=== PATIENT | male | born 1945 | race Caucasian/White ===

== ENCOUNTER → 2016-04-20 | Outpatient (CLI) | payer OTHER, MEDICARE | LOC: HYPER 07:00 | DX: S91.102D Unspecified open wound of left great toe without damage to nail, subsequent encounter (principal); I73.9 Peripheral vascular disease, unspecified; I10 Essential (primary) hypertension; Z86.14 Personal history of Methicillin resistant Staphylococcus aureus infection; Z87.891 Personal history of nicotine dependence; Z72.89 Other problems related to lifestyle; X58.XXXD Exposure to other specified factors, subsequent encounter ==

== ENCOUNTER → 2016-05-04 | Outpatient (CLI) | payer OTHER, MEDICARE | LOC: HYPER 07:03 | DX: S91.102D Unspecified open wound of left great toe without damage to nail, subsequent encounter (principal); I73.9 Peripheral vascular disease, unspecified; I10 Essential (primary) hypertension; Z87.891 Personal history of nicotine dependence; Z72.89 Other problems related to lifestyle; X58.XXXD Exposure to other specified factors, subsequent encounter ==

== ENCOUNTER → 2016-05-20 | Outpatient (CLI) | payer OTHER, MEDICARE | LOC: HYPER 07:01 | DX: L89.893 Pressure ulcer of other site, stage 3 (principal); G90.09 Other idiopathic peripheral autonomic neuropathy; I73.9 Peripheral vascular disease, unspecified; I10 Essential (primary) hypertension; Z86.14 Personal history of Methicillin resistant Staphylococcus aureus infection; Z87.891 Personal history of nicotine dependence; Z72.89 Other problems related to lifestyle ==

== ENCOUNTER → 2016-06-03 | Outpatient (CLI) | payer OTHER, MEDICARE | LOC: HYPER 07:06 | DX: L97.522 Non-pressure chronic ulcer of other part of left foot with fat layer exposed (principal); G90.09 Other idiopathic peripheral autonomic neuropathy; I73.9 Peripheral vascular disease, unspecified; I10 Essential (primary) hypertension; A49.1 Streptococcal infection, unspecified site; A49.01 Methicillin susceptible Staphylococcus aureus infection, unspecified site; Z87.891 Personal history of nicotine dependence ==

== ENCOUNTER → 2016-06-05 | Outpatient (CLI) | payer OTHER, MEDICARE | LOC: HYPER 08:13 | DX: L97.522 Non-pressure chronic ulcer of other part of left foot with fat layer exposed (principal); L89.893 Pressure ulcer of other site, stage 3; G90.09 Other idiopathic peripheral autonomic neuropathy; I73.9 Peripheral vascular disease, unspecified; I10 Essential (primary) hypertension; Z86.14 Personal history of Methicillin resistant Staphylococcus aureus infection; Z87.891 Personal history of nicotine dependence; Z72.89 Other problems related to lifestyle ==

== ENCOUNTER → 2016-06-12 | Outpatient (CLI) | payer OTHER, MEDICARE | LOC: HYPER 08:08 | DX: L89.893 Pressure ulcer of other site, stage 3 (principal); L97.522 Non-pressure chronic ulcer of other part of left foot with fat layer exposed; G90.09 Other idiopathic peripheral autonomic neuropathy; I73.9 Peripheral vascular disease, unspecified; I10 Essential (primary) hypertension; Z86.14 Personal history of Methicillin resistant Staphylococcus aureus infection; Z87.891 Personal history of nicotine dependence; Z72.89 Other problems related to lifestyle ==

== ENCOUNTER → 2016-06-18 | Outpatient (CLI) | payer OTHER, MEDICARE | LOC: HYPER 07:07 | DX: L97.522 Non-pressure chronic ulcer of other part of left foot with fat layer exposed (principal); G90.09 Other idiopathic peripheral autonomic neuropathy; I73.9 Peripheral vascular disease, unspecified; I10 Essential (primary) hypertension; Z86.19 Personal history of other infectious and parasitic diseases; Z87.891 Personal history of nicotine dependence ==

== ENCOUNTER → 2016-06-25 | Outpatient (CLI) | payer OTHER, MEDICARE | LOC: HYPER 07:18 | DX: L97.522 Non-pressure chronic ulcer of other part of left foot with fat layer exposed (principal); I73.9 Peripheral vascular disease, unspecified; I10 Essential (primary) hypertension; G90.09 Other idiopathic peripheral autonomic neuropathy; Z87.891 Personal history of nicotine dependence ==

== ENCOUNTER → 2016-07-02 | Outpatient (CLI) | payer OTHER, MEDICARE | LOC: HYPER 07:23 | DX: I70.245 Atherosclerosis of native arteries of left leg with ulceration of other part of foot (principal); L97.521 Non-pressure chronic ulcer of other part of left foot limited to breakdown of skin; L89.893 Pressure ulcer of other site, stage 3; I10 Essential (primary) hypertension; I73.9 Peripheral vascular disease, unspecified; G90.09 Other idiopathic peripheral autonomic neuropathy; Z86.14 Personal history of Methicillin resistant Staphylococcus aureus infection; Z87.891 Personal history of nicotine dependence; Z72.89 Other problems related to lifestyle ==

== ENCOUNTER → 2016-07-10 | Outpatient (CLI) | payer OTHER, MEDICARE | LOC: HYPER 07-09 15:54 | DX: L97.522 Non-pressure chronic ulcer of other part of left foot with fat layer exposed (principal); L89.891 Pressure ulcer of other site, stage 1; G90.09 Other idiopathic peripheral autonomic neuropathy; I10 Essential (primary) hypertension; I70.245 Atherosclerosis of native arteries of left leg with ulceration of other part of foot; Z86.14 Personal history of Methicillin resistant Staphylococcus aureus infection; Z86.19 Personal history of other infectious and parasitic diseases; Z87.891 Personal history of nicotine dependence ==

== ENCOUNTER → 2016-07-22 | Outpatient (CLI) | payer OTHER, MEDICARE | LOC: HYPER 07:10 | DX: L89.891 Pressure ulcer of other site, stage 1 (principal); G90.09 Other idiopathic peripheral autonomic neuropathy; I70.245 Atherosclerosis of native arteries of left leg with ulceration of other part of foot; L97.522 Non-pressure chronic ulcer of other part of left foot with fat layer exposed; I10 Essential (primary) hypertension; B95.62 Methicillin resistant Staphylococcus aureus infection as the cause of diseases classified elsewhere; Z87.891 Personal history of nicotine dependence ==

== ENCOUNTER → 2016-08-12 | Outpatient (CLI) | payer OTHER, MEDICARE | LOC: HYPER 06:56 | DX: I70.245 Atherosclerosis of native arteries of left leg with ulceration of other part of foot (principal); L97.522 Non-pressure chronic ulcer of other part of left foot with fat layer exposed; L89.893 Pressure ulcer of other site, stage 3; G90.09 Other idiopathic peripheral autonomic neuropathy; I10 Essential (primary) hypertension; B95.62 Methicillin resistant Staphylococcus aureus infection as the cause of diseases classified elsewhere; B95.61 Methicillin susceptible Staphylococcus aureus infection as the cause of diseases classified elsewhere; B95.5 Unspecified streptococcus as the cause of diseases classified elsewhere; Z87.891 Personal history of nicotine dependence; Z72.89 Other problems related to lifestyle ==

== ENCOUNTER → 2016-09-10 | Outpatient (CLI) | payer OTHER, MEDICARE | LOC: HYPER 07:03 | DX: L89.893 Pressure ulcer of other site, stage 3 (principal); L97.522 Non-pressure chronic ulcer of other part of left foot with fat layer exposed; G90.09 Other idiopathic peripheral autonomic neuropathy; I73.9 Peripheral vascular disease, unspecified; I10 Essential (primary) hypertension; Z86.19 Personal history of other infectious and parasitic diseases; Z86.14 Personal history of Methicillin resistant Staphylococcus aureus infection; Z87.891 Personal history of nicotine dependence ==

== ENCOUNTER → 2016-10-20 | Outpatient (CLI) | payer OTHER, MEDICARE | LOC: HYPER 09-24 14:13 | DX: T81.31XA Disruption of external operation (surgical) wound, not elsewhere classified, initial encounter (principal); L89.893 Pressure ulcer of other site, stage 3; Z86.14 Personal history of Methicillin resistant Staphylococcus aureus infection; I10 Essential (primary) hypertension; Z87.891 Personal history of nicotine dependence; Z72.89 Other problems related to lifestyle; Y92.89 Other specified places as the place of occurrence of the external cause; Y83.8 Other surgical procedures as the cause of abnormal reaction of the patient, or of later complication, without mention of misadventure at the time of the procedure ==

== ENCOUNTER → 2016-11-03 | Outpatient (CLI) | payer OTHER, MEDICARE | LOC: HYPER 07:09 | DX: T81.31XD Disruption of external operation (surgical) wound, not elsewhere classified, subsequent encounter (principal); L89.892 Pressure ulcer of other site, stage 2; I73.9 Peripheral vascular disease, unspecified; I10 Essential (primary) hypertension; Z86.14 Personal history of Methicillin resistant Staphylococcus aureus infection; Z87.891 Personal history of nicotine dependence; Z72.89 Other problems related to lifestyle; Y83.8 Other surgical procedures as the cause of abnormal reaction of the patient, or of later complication, without mention of misadventure at the time of the procedure ==

== ENCOUNTER → 2016-11-17 | Outpatient (CLI) | payer OTHER, MEDICARE | LOC: HYPER 07:19 | DX: T81.31XD Disruption of external operation (surgical) wound, not elsewhere classified, subsequent encounter (principal); I73.9 Peripheral vascular disease, unspecified; L89.893 Pressure ulcer of other site, stage 3; Z87.891 Personal history of nicotine dependence; Y83.8 Other surgical procedures as the cause of abnormal reaction of the patient, or of later complication, without mention of misadventure at the time of the procedure ==

== ENCOUNTER → 2016-12-03 | Outpatient (CLI) | payer OTHER, MEDICARE | LOC: HYPER 06:59 | DX: T81.31XD Disruption of external operation (surgical) wound, not elsewhere classified, subsequent encounter (principal); L89.893 Pressure ulcer of other site, stage 3; Z86.14 Personal history of Methicillin resistant Staphylococcus aureus infection; I73.9 Peripheral vascular disease, unspecified; Z87.891 Personal history of nicotine dependence; Y83.8 Other surgical procedures as the cause of abnormal reaction of the patient, or of later complication, without mention of misadventure at the time of the procedure ==

== ENCOUNTER → 2017-01-04 | Outpatient (CLI) | payer OTHER, MEDICARE | LOC: HYPER 07:19 | DX: T81.31XD Disruption of external operation (surgical) wound, not elsewhere classified, subsequent encounter (principal); L89.893 Pressure ulcer of other site, stage 3; I73.9 Peripheral vascular disease, unspecified; Z86.14 Personal history of Methicillin resistant Staphylococcus aureus infection; I10 Essential (primary) hypertension; Z87.891 Personal history of nicotine dependence; Y83.8 Other surgical procedures as the cause of abnormal reaction of the patient, or of later complication, without mention of misadventure at the time of the procedure ==

== ENCOUNTER → 2017-01-14 | Outpatient (CLI) | payer OTHER, MEDICARE | LOC: HYPER 01-13 16:42 | DX: T81.31XD Disruption of external operation (surgical) wound, not elsewhere classified, subsequent encounter (principal); L89.892 Pressure ulcer of other site, stage 2; L84 Corns and callosities; I10 Essential (primary) hypertension; I73.9 Peripheral vascular disease, unspecified; A49.01 Methicillin susceptible Staphylococcus aureus infection, unspecified site; Z86.14 Personal history of Methicillin resistant Staphylococcus aureus infection; Z87.891 Personal history of nicotine dependence; Z72.89 Other problems related to lifestyle; Y83.8 Other surgical procedures as the cause of abnormal reaction of the patient, or of later complication, without mention of misadventure at the time of the procedure ==

== ENCOUNTER → 2017-02-03 | Outpatient (CLI) | payer OTHER, MEDICARE | LOC: HYPER 06:41 | DX: L89.892 Pressure ulcer of other site, stage 2 (principal); I73.9 Peripheral vascular disease, unspecified; I10 Essential (primary) hypertension; Z86.14 Personal history of Methicillin resistant Staphylococcus aureus infection; Z87.891 Personal history of nicotine dependence; Z72.89 Other problems related to lifestyle ==

== ENCOUNTER → 2017-02-17 | Outpatient (CLI) | payer OTHER, MEDICARE | LOC: HYPER 06:35 | DX: L89.893 Pressure ulcer of other site, stage 3 (principal); I73.9 Peripheral vascular disease, unspecified; S90.414A Abrasion, right lesser toe(s), initial encounter; I10 Essential (primary) hypertension; Z87.891 Personal history of nicotine dependence; X58.XXXA Exposure to other specified factors, initial encounter; Y93.89 Activity, other specified; Y92.89 Other specified places as the place of occurrence of the external cause; Y99.8 Other external cause status ==

== ENCOUNTER → 2017-04-23 | Outpatient (CLI) | payer OTHER, MEDICARE | LOC: HYPER 08:27 | DX: L97.521 Non-pressure chronic ulcer of other part of left foot limited to breakdown of skin (principal); I73.9 Peripheral vascular disease, unspecified; L84 Corns and callosities; Z87.891 Personal history of nicotine dependence; Z72.89 Other problems related to lifestyle ==

== ENCOUNTER → 2017-05-21 | Outpatient (CLI) | payer OTHER, MEDICARE | LOC: HYPER 07:59 | DX: L97.521 Non-pressure chronic ulcer of other part of left foot limited to breakdown of skin (principal); I73.9 Peripheral vascular disease, unspecified; I10 Essential (primary) hypertension; L84 Corns and callosities; Z87.891 Personal history of nicotine dependence ==